=== PATIENT | female | born 1995 | race American Indian/Alaskan Native ===

== ENCOUNTER 2016-07-22 21:29 | Emergency (ER) | payer MEDICAID ==
[2016-07-22 23:41] LABS: Hematocrit 24.4 % (30.3-42.9); Mean Corpuscular HGB Conc 33 % (30-34); Mean Corpuscular Hemoglobin 32 pg (28-32); Mean Corpuscular Volume 96 fl (79-97); Platelet Count 371 K/mm3 (140-440); Red Blood Count 2.55 M/mm3 (3.65-5.03); Reticulocyte % 14.29 % (0.78-2.58); White Blood Count 12.9 K/mm3 (4.5-11.0)
[2016-07-22 23:55] LABS: Anion Gap 15 mmol/L; BUN/Creatinine Ratio 26.66; Blood Urea Nitrogen 8 mg/dL (7-17); Calcium 8.7 mg/dL (8.4-10.2); Carbon Dioxide 26 mmol/L (22-30); Chloride 102.9 mmol/L (98-107); Glucose 92 mg/dL (65-100); Potassium 3.8 mmol/L (3.6-5.0); Sodium 140 mmol/L (137-145)
[2016-07-23 00:01] LABS: Red Cell Distribution Width 21.6 % (13.2-15.2)
[2016-07-23 00:53] LABS: Basophils % (Manual) 0 % (0.0-1.8); Blastocytes % (Manual) 0 %; Eosinophils % (Manual) 0 % (0.0-4.3)
[2016-07-23 00:54] LABS: Anisocytosis 1+; Diff Status Complete; Platelet Estimate Consistent w Auto
[2016-07-23 00:55] LABS: Sickle Cells 2+
[2016-07-23] MEDS ORDERED: BENADRYL PO ONE (04:28)
[2016-07-23] MEDS ORDERED: ZOFRAN IV ONE (04:28)
[2016-07-23] MEDS ORDERED: DILAUDID IV ONE ×3 (04:28→06:45)
--- NOTE | 2016-07-23 04:29 | Emergency Department Report ---
ED General Adult HPI - General Chief complaint: Sickle Cell Crisis Stated complaint: SICKLE CELL PAIN CRISIS Time Seen by Provider: 07/23/16 04:21 Source: patient, RN notes reviewed Mode of arrival: Ambulatory Limitations: No Limitations - History of Present Illness Initial comments: This is a 20-year-old female. She is previously unknown to me. Her family reunification specialist is at [facility], Dr. Percy Beard Patient has a past medical history of sickle cell disease. She reports she is able to tolerate Percocet, and hydromorphone. She presents to the ER with lower back pain, suprapubic abdominal pressure, and right distal arm pain. She reports his symptoms are consistent with prior episodes of sickle cell crisis. She has a history of cholecystectomy and "brain surgery." She denies irritative and obstructive urinary symptoms, chest pain and shortness of breath , and reports that she is not . She further reports that her symptoms today are similar to prior episodes of sickle cell crisis. Sickle cell crisis typically gets exacerbated by stress, weather, change of seasons. -: Gradual Location: back, right, upper extremity Severity scale (0 -10): 8 Quality: aching Improves with: medication, rest Worsens with: movement Associated Symptoms: denies: confusion, chest pain, cough, diaphoresis, fever/ chills, headaches, loss of appetite, shortness of breath, syncope, weakness - Related Data Previous Rx's Medication Instructions Recorded Last Taken Type Ondansetron [Zofran Odt] 4 mg PO QID PRN #20 tab.rapdis 07/23/16 Unknown Rx Oxycodone HCl/Acetaminophen 1 each PO Q6HR PRN #20 tablet 07/23/16 Unknown Rx [Percocet 7.5/325 mg] Allergies Allergy/AdvReac Type Severity Reaction Status Date / Time ketorolac tromethamine Allergy Rash Verified 07/22/16 23:12 [From Toradol] morphine Allergy Rash Verified 07/22/16 23:12 tramadol Allergy Rash Verified 07/22/16 23:12 ED Review of Systems ROS: Stated complaint: SICKLE CELL PAIN CRISIS Other details as noted in HPI Constitutional: denies: fever, malaise Eyes: denies: vision change ENT: denies: epistaxis Respiratory: denies: cough Cardiovascular: denies: chest pain Gastrointestinal: abdominal pain Genitourinary: denies: urgency, dysuria Musculoskeletal: back pain, arthralgia, myalgia Skin: denies: lesions Neurological: denies: headache, weakness Psychiatric: denies: anxiety ED Past Medical Hx - Past Medical History Hx Sickle Cell Disease: Yes - Surgical History Past Surgical History?: Yes Additional Surgical History: brain surgery, gallbladder - Social History Smoking Status: Current Some Day Smoker Substance Use Type: None - Medications Home Medications: Home Medications Medication Instructions Recorded Confirmed Last Taken Type Ondansetron [Zofran Odt] 4 mg PO QID PRN #20 tab.rapdis 07/23/16 Unknown Rx Oxycodone HCl/Acetaminophen 1 each PO Q6HR PRN #20 tablet 07/23/16 Unknown Rx [Percocet 7.5/325 mg] ED Physical Exam - General Limitations: No Limitations General appearance: alert, in no apparent distress - Head Head exam: Present: atraumatic, normocephalic - Eye Eye exam: Present: normal appearance, PERRL, EOMI, scleral icterus - ENT ENT exam: Present: normal exam, normal orophraynx, mucous membranes moist, TM's normal bilaterally, normal external ear exam - Neck Neck exam: Present: normal inspection, full ROM. Absent: tenderness, meningismus - Respiratory Respiratory exam: Present: normal lung sounds bilaterally. Absent: respiratory distress, wheezes, rales, rhonchi, stridor, chest wall tenderness, accessory muscle use, decreased breath sounds, prolonged expiratory - Cardiovascular Cardiovascular Exam: Present: regular rate, normal rhythm, normal heart sounds. Absent: bradycardia, tachycardia, irregular rhythm, systolic murmur, diastolic murmur, rubs, gallop - GI/Abdominal GI/Abdominal exam: Present: soft, normal bowel sounds. Absent: distended, tenderness, guarding, rebound, rigid, pulsatile mass - Extremities Exam Extremities exam: Present: normal inspection, full ROM, normal capillary refill. Absent: tenderness, pedal edema, joint swelling, calf tenderness - Back Exam Back exam: Present: normal inspection, full ROM, paraspinal tenderness. Absent : tenderness, CVA tenderness (R), CVA tenderness (L), muscle spasm - Neurological Exam Neurological exam: Present: alert, oriented X3, normal gait, other (Extraocular movements intact. Tongue midline. No facial droop. Facial sensation intact to light touch in the V1, V2, V3 distribution bilaterally. 5 and 5 strength in 4 extremities.. Sensation is intact to light touch in 4 extremities.). Absent : motor sensory deficit - Psychiatric Psychiatric exam: Present: normal affect, normal mood - Skin Skin exam: Present: warm, dry, intact, normal color. Absent: rash ED Course Vital Signs 07/22/16 07/23/16 07/23/16 23:14 02:46 03:57 Temperature 98.2 F Pulse Rate 75 74 70 Respiratory 16 18 18 Rate Blood Pressure 125/85 Blood Pressure 125/78 115/75 [Right] O2 Sat by Pulse 100 95 95 Oximetry 07/23/16 05:57 Temperature Pulse Rate 63 Respiratory 18 Rate Blood Pressure Blood Pressure 118/87 [Right] O2 Sat by Pulse 96 Oximetry - Reevaluation(s) Reevaluation #1: 07/23/16 05:59 Differential diagnosis: Sickle cell crisis, urinary tract infection, assessment and plan: 20-year-old female with sickle cell crisis. She is afebrile with reassuring vital signs. She does have mild anemia, with elevated reticulocyte count, and scleral icterus. However, she is remarkably well-appearing, endorses that she is not , and has no right lower quadrant abdominal tenderness, rebound or guarding. She was given 2 rounds of hydromorphone, and reported that she felt much improved. I did offer to admit the patient for symptomatic control, but she indicated that she felt comfortable going home. She requested one additional round of hydromorphone for pain control. This is ordered. A urinalysis is pending. Care is transferred to the oncoming physician, Dr. Gupta. Assuming urinalysis does not demonstrate evidence of UTI or , I believe patient will be suitable for discharge at this time. The patient indicates that she can take percent at home. 07/23/16 05:59 ED Medical Decision Making - Lab Data Result diagrams: 07/22/16 23:24 07/22/16 23:24 Vital Signs 07/22/16 07/23/16 07/23/16 23:14 02:46 03:57 Temperature 98.2 F Pulse Rate 75 74 70 Respiratory 16 18 18 Rate Blood Pressure 125/85 Blood Pressure 125/78 115/75 [Right] O2 Sat by Pulse 100 95 95 Oximetry 07/23/16 05:57 Temperature Pulse Rate 63 Respiratory 18 Rate Blood Pressure Blood Pressure 118/87 [Right] O2 Sat by Pulse 96 Oximetry Lab Results 07/22/16 07/22/16 Range/Units 23:24 23:24 WBC 12.9 H (4.5-11.0) K/mm3 RBC 2.55 L (3.65-5.03) M/mm3 Hgb 8.0 L (10.1-14.3) gm/dl Hct 24.4 L (30.3-42.9) % MCV 96 (79-97) fl MCH 32 (28-32) pg MCHC 33 (30-34) % RDW 21.6 H (13.2-15.2) % Plt Count 371 (140-440) K/mm3 Lymph # Door And Arrival Attendant Add Manual Diff Complete Total Counted 100 Seg Neuts % (Manual) 46.0 (40.0-70.0) % Band Neutrophils % 0 % Lymphocytes % (Manual) 48.0 H (13.4-35.0) % Reactive Lymphs % (Man) 0 % Monocytes % (Manual) 6.0 (0.0-7.3) % Eosinophils % (Manual) 0 (0.0-4.3) % Basophils % (Manual) 0 (0.0-1.8) % Metamyelocytes % 0 % Myelocytes % 0 % Promyelocytes % 0 % Blast Cells % 0 % Nucleated RBC % Not Reportable Seg Neutrophils # Man 5.9 (1.8-7.7) K/mm3 Band Neutrophils # 0.0 K/mm3 Lymphocytes # (Manual) 6.2 H (1.2-5.4) K/mm3 Abs React Lymphs (Man) 0.0 K/mm3 Monocytes # (Manual) 0.8 (0.0-0.8) K/mm3 Eosinophils # (Manual) 0.0 (0.0-0.4) K/mm3 Basophils # (Manual) 0.0 (0.0-0.1) K/mm3 Metamyelocytes # 0.0 K/mm3 Myelocytes # 0.0 K/mm3 Promyelocytes # 0.0 K/mm3 Blast Cells # 0.0 K/mm3 WBC Morphology Not Reportable Hypersegmented Neuts Not Reportable Hyposegmented Neuts Not Reportable Hypogranular Neuts Not Reportable Smudge Cells Not Reportable Toxic Granulation Not Reportable Toxic Vacuolation Not Reportable Dohle Bodies Not Reportable Pelger-Huet Anomaly Not Reportable Emily Rods Not Reportable Platelet Estimate Consistent w auto Clumped Platelets Not Reportable Plt Clumps, EDTA Not Reportable Large Platelets Not Reportable Giant Platelets Not Reportable Platelet Satelliting Not Reportable Plt Morphology Comment Not Reportable RBC Morphology Not Reportable Dimorphic RBCs Not Reportable Polychromasia Not Reportable Hypochromasia Not Reportable Poikilocytosis Not Reportable Anisocytosis 1+ Microcytosis Not Reportable Macrocytosis Not Reportable Spherocytes Not Reportable Pappenheimer Bodies Not Reportable Sickle Cells 2+ Target Cells Not Reportable Tear Drop Cells Not Reportable Ovalocytes Not Reportable Helmet Cells Not Reportable [place] Bodies Not Reportable [place] Rings Not Reportable [place] Cells Not Reportable Bite Cells Not Reportable Crenated Cell Not Reportable Elliptocytes Not Reportable Acanthocytes (Spur) Not Reportable Rouleaux Not Reportable Hemoglobin C Crystals Not Reportable Schistocytes Not Reportable Malaria parasites Not Reportable Percent Retic 14.29 H (0.78-2.58) % Fran Bodies Not Reportable Hem Pathologist Commnt No Sodium 140 (137-145) mmol/L Potassium 3.8 (3.6-5.0) mmol/L Chloride 102.9 (98-107) mmol/L Carbon Dioxide 26 (22-30) mmol/L Anion Gap 15 mmol/L BUN 8 (7-17) mg/dL Creatinine 0.3 L (0.7-1.2) mg/dL Estimated GFR > 60 ml/min BUN/Creatinine Ratio 26.66 % Glucose 92 (65-100) mg/dL Calcium 8.7 (8.4-10.2) mg/dL Critical care attestation.: If time is entered above; I have spent that time in minutes in the direct care of this critically ill patient, excluding procedure time. ED Disposition Clinical Impression: Sickle cell crisis Disposition: DISCHARGED TO HOME OR SELFCARE Is pt being admited?: No Does the pt Need Aspirin: No Condition: Good Instructions: Sickle Cell Crisis (ED) Additional Instructions: Take the pain medication and nausea medication as directed. Follow-up with a family reunification specialist or primary care doctor within the next 5-7 days. Return to the ER right away with new pain, worsened pain, migration of pain, fevers or chills, intractable nausea or vomiting, inability to tolerate liquid feeds. Prescriptions: Ondansetron [Zofran Odt] 4 mg PO QID PRN #20 tab.rapdis PRN Reason: Nausea Oxycodone HCl/Acetaminophen [Percocet 7.5/325 mg] 1 each PO Q6HR PRN #20 tablet PRN Reason: Pain Referrals: GABRIEL POSEY [Other] - 3-5 Days CLARITZA CROOK DO [Staff Physician] - 3-5 Days
[2016-07-23] MEDS ORDERED: D5/0.45NS 1,000 ML IV SCH (05:00)
[2016-07-23 05:58] VITALS: BP 118/87
[2016-07-23 06:12] LABS: Bilirubin,Urine NEG (Negative); Blood,Urine NEG (Negative); Ketones,Urine NEG (Negative); Leukocyte Esterase,Urine NEG (Negative); Mucus,Urine FEW /HPF; Nitrite,Urine NEG (Negative); Protein,Urine <15 mg/dL mg/dL (Negative)
== END 2016-07-23 06:49 | disposition home or self-care (01) ==
LOC: ED 21:29
DX: D57.00 Hb-SS disease with crisis, unspecified (principal); Z88.5 Allergy status to narcotic agent; F17.200 Nicotine dependence, unspecified, uncomplicated
CPT/HCPCS: 36415; 80048; 81001; 81025; 85007; 85025; 85045; 96361; 96374; 96376; 99283; J1170; J2405

== ENCOUNTER 2016-12-09 15:49 | Emergency (ER) | payer MEDICAID ==
--- NOTE | 2016-12-09 16:25 | Emergency Department Report ---
Stated Complaint: SICKLE CELL CRISIS Time Seen by Provider: 12/09/16 16:22 - HPI History of Present Illness: PT c/o pain in back and legs that started last night. PT states she is out of her pain medication. PT states this feels like her Sickle cell pain crisis - ROS Review of Systems: - fever - Exam Vital Signs: Vital Signs 12/09/16 16:21 Pulse Rate 105 H Respiratory 15 Rate Blood Pressure 123/75 O2 Sat by Pulse 99 Oximetry Physical Exam: thin female no acute distress Velcro brace on RUE MSE screening note: Focused history and physical exam performed. Due to findings the following was ordered: labs ED Disposition for MSE Condition: Stable
[2016-12-09 17:14] LABS: Basophils % (Auto) 0.7 % (0.0-1.8); Eosinophils % (Auto) 1.1 % (0.0-4.3); Hemoglobin 9.1 gm/dl (10.1-14.3); Mean Corpuscular HGB Conc 35 % (30-34); Mean Corpuscular Hemoglobin 31 pg (28-32); Mean Corpuscular Volume 88 fl (79-97); Platelet Count 273 K/mm3 (140-440); Red Blood Count 2.95 M/mm3 (3.65-5.03); Red Cell Distribution Width 15.5 % (13.2-15.2); Reticulocyte % 8.68 % (0.78-2.58); White Blood Count 6.1 K/mm3 (4.5-11.0)
[2016-12-09 17:25] LABS: Anion Gap 18 mmol/L; BUN/Creatinine Ratio 36.66; Blood Urea Nitrogen 11 mg/dL (7-17); Carbon Dioxide 26 mmol/L (22-30); Chloride 96.4 mmol/L (98-107); Glucose 104 mg/dL (65-100); Potassium 3.7 mmol/L (3.6-5.0); Sodium 137 mmol/L (137-145)
[2016-12-09 22:06] VITALS: BP 113/79
[2016-12-09 22:52] LABS: Bilirubin,Urine NEG (Negative); Blood,Urine SM (Negative); Ketones,Urine NEG (Negative); Leukocyte Esterase,Urine NEG (Negative); Mucus,Urine FEW /HPF; Nitrite,Urine NEG (Negative); RBC,Urine < 1.0 /HPF (0.0-6.0)
== END 2016-12-10 00:15 | disposition left against medical advice (07) ==
LOC: ED 15:49
DX: D57.00 Hb-SS disease with crisis, unspecified (principal); Z53.21 Procedure and treatment not carried out due to patient leaving prior to being seen by health care provider
CPT/HCPCS: 36415; 80048; 81001; 84703; 85025; 85045